=== PATIENT | female | born 1990 | race African-American/Black ===

== ENCOUNTER 2017-09-15 22:40 | Emergency (ER) | payer OTHER ==
[~2017-09-15] VITALS: Ht 170.2 cm; Wt 104.3 kg
[2017-09-16] MEDS ORDERED: FLEXERIL PO (05:27)
[2017-09-16] MEDS ORDERED: IBUPROFEN 800800 M1 PO (05:27)
[2017-09-16] MEDS ORDERED: NORCO 7.5-3251 EACH PO (05:27)
[2017-09-16] MEDS ORDERED: SENNA-DOCUSATE1 EACH PO (05:31)
[2017-09-16 06:16] VITALS: BP 113/60
== END 2017-09-16 07:11 | disposition home or self-care (01) ==
LOC: ER 22:40
DX: S71.111A Laceration without foreign body, right thigh, initial encounter (principal); S20.219A Contusion of unspecified front wall of thorax, initial encounter; Y04.0XXA Assault by unarmed brawl or fight, initial encounter; Y93.89 Activity, other specified; Y92.89 Other specified places as the place of occurrence of the external cause; Y99.8 Other external cause status